=== PATIENT | female | born 1960 | race Caucasian/White ===

== ENCOUNTER 2017-02-17 15:48 | Outpatient (CLI) | payer BC ==
--- NOTE | 2017-02-17 16:43 | RAD ---
LUMBAR SPINE 3 VIEWS: Date: 02/17/17 HISTORY: Fall 4 years ago and had back pain. Over last 4 months, pain radiating down both legs and buttocks. COMPARISON: None. FINDINGS: Five non-rib bearing lumbar-type vertebra. Severe osteoarthritic disease of both hips with complete joint space loss, as well as large subchondral cyst formation. No abnormal calcifications or extrarenal shadows. Moderate degenerative disc space disease at L5-S1 with 1.0 mm anterolisthesis. There are anterior osteophytes at L2-3 and L3-4. There are enthesopathic changes at the left greater trochanter. Moderate facet arthrosis at L4-5 and L5-S1. IMPRESSION: 1. Mild spondylosis of the lumbar spine. 2. Severe osteoarthritic disease of both hips. Orthopedic consultation advised. POS: OFF
== END 2017-02-17 15:49 | disposition home or self-care (01) ==
LOC: SCSRAD 15:48
PROVIDERS: ATTEND Family Medicine
DX: M54.41 Lumbago with sciatica, right side (principal); M47.816 Spondylosis without myelopathy or radiculopathy, lumbar region; M16.0 Bilateral primary osteoarthritis of hip
CPT/HCPCS: 72100

== ENCOUNTER 2017-08-19 12:43 | Outpatient (CLI) | payer BC ==
--- NOTE | 2017-08-19 17:11 | MRI ---
EXAM: MRI OF LUMBAR SPINE WITHOUT CONTRAST 08/19/17 HISTORY: Radicular low back pain. chronic back pain times years, worsening the last eight months. COMPARISON: None. TECHNIQUE: MRI of lumbar spine is performed without intravenous gadolinium administration. Multisequential, mult iplanar imaging is performed. FINDINGS: Appropriate T1 marrow signal intensity lumbar vertebrae. Lumbar spine vertebral body height is mainta ined. There is no evidence of fracture. No significant STIR hyperintensity to suggest vertebral body edema or ligamentous injury. No evidence of spondylolisthesis. There does appear to be spondylosis al ricardo the bilateral pars at L5. Symmetric signal intensity of the psoas muscles. The visualized solid organs are unremarkable. The co nus medullaris terminates at the inferior aspect of T12. T12-L1: Adequate disc hydration. No significant central canal stenosis. Neural foramina are patent. L1-L2: Adequate disc hydration. No significant central canal stenosis. Foramina are patent. L2-L3: Mild loss of disc space height. Minimal posterior disc abnormality. Minimal ligamentum flavum thickening with facet hypertrophy. Minimal central canal stenosis. Neural foramina are patent bilater ally. L3-L4: Adequate disc hydration. No significant posterior disc abnormality. No significant central can al stenosis. Foramina are patent. L4-L5: Desiccation with mild loss of disc space height. Minimal central bulge. No significant central canal stenosis. Neural foramina are patent. L5-S1: Mild loss of disc space height. Minimal Right paracentral disc bulge. No significant mass effe ct upon the traversing right S1 nerve root. No significant stenosis of the left subarticular zone or the thecal sac. Neural foramina are patent. IMPRESSION: Mild degenerative changes involving the lower lumbar spine without significant central canal stenosis or foraminal narrowing. POS: [facility]
== END 2017-08-19 12:44 | disposition home or self-care (01) ==
LOC: SCSMRI 12:43
PROVIDERS: ATTEND Family Medicine
DX: M54.5 Low back pain (principal); M47.896 Other spondylosis, lumbar region
CPT/HCPCS: 72148

== ENCOUNTER 2017-09-19 14:24 | Outpatient (CLI) | payer BC ==
--- NOTE | 2017-09-19 14:58 | RAD ---
4 VIEWS LUMBAR SPINE: Date: 09/19/17 HISTORY: Spondylolisthesis lumbosacral region. Patient has lower back pain for many years due to heavy lifting . COMPARISON: 02/17/17. FINDINGS: There is grade I anterolisthesis of L5 on S1 without abnormal translational motion seen between the f lexion and extension views. There do appear to be bilateral pars defects at L5. Vertebral body height s are within normal limits, and there is no fracture identified. Minimal osteophytes are seen anterio rly involving the lumbar spine, greatest at the L2-3 level. IMPRESSION: 1. Stable spondylolisthesis lumbosacral junction. 2. Mild degenerative changes in the spine. 3. Severe bilateral hip osteoarthritis partially imaged, and also noted on the prior exam. POS: [facility]
== END 2017-09-19 14:25 | disposition home or self-care (01) ==
LOC: SCSRAD 14:24
PROVIDERS: ATTEND Specialist
DX: M43.17 Spondylolisthesis, lumbosacral region (principal); M47.897 Other spondylosis, lumbosacral region; M16.0 Bilateral primary osteoarthritis of hip
CPT/HCPCS: 72110